=== PATIENT | female | born 1940 | race Caucasian/White ===

== ENCOUNTER 2016-05-05 14:40 | Inpatient (IN) | payer OTHER ==
[~2016-05-05] VITALS: Ht 180.3 cm; Wt 132.7 kg
[~2016-05-05 14:40] MED LIST: ACETAMINOPHEN325 M1 PO; ATORVASTATIN CA10 MG PO; B COMPLETE1 EACH PO; CALCIUM 600 +1 EAC4 PO; COUMADIN2.5 MG PO; COUMADIN4 MG PO; COUMADIN5 MG PO; CYMBALTA60 MG PO; FEMARA2.5 MG PO; FLUCONAZOLE100 MG PO; GABAPENTIN300 MG PO; HUMALOG100 UNIT/1 SC; HUMALOG100 UNIT/2 SC; INVOKANA100 MG PO; IRON325 MG PO; LANTUS 10100 UNITS/ SC; LEVOTHYROXINE200 MC1 PO; MAGNESIUM400 M1 PO; METOPROLOL SUCC50 MG PO; MYCELEX10 MG MM; NOVOLOG PE100 UNITS/ SC; POTASSIUM CHLO20 MEQ PO; SSD25GM TP; TOPROL XL25 MG PO; TRAMADOL HCL50 MG PO; VERAPAMIL HCL240 MG PO; VITAMIN B12 100MCG PO
[2016-05-05 16:08] LABS: EOSINOPHIL (%) 2.2 % (0-5); EOSINOPHIL COUNT 0.2 K/uL (0-0.3); HEMATOCRIT 33.3 % (36.0-46.0); IMMATURE GRANULOCYTE (%) 0.2 % (0.0-0.7); IMMATURE GRANULOCYTE COUNT 0.2 K/uL; LYMPHOCYTE COUNT 1.5 K/uL (1.0-2.8); MCH 28.7 PG (29.0-34.0); MCHC 31.8 G/DL (30.0-36.0); MCV 90.2 FL (83-99); MEAN PLAT.VOLUME 8.9 uM^3 (9.5-12.4); MONOCYTE (%) 6.2 % (3-12); MONOCYTE COUNT 0.5 K/uL (0-0.8); NEUTROPHIL COUNT 6.5 K/uL (1.8-6.4); PLATELET COUNT 229 K/uL (156-360); RBC DIS.WIDTH-CV 14.4 % (11.8-14.6); RBC DIS.WIDTH-SD 46.2 % (39-53); RED BLOOD COUNT 3.69 M/uL (3.80-5.20); WHITE BLOOD COUNT 8.7 K/uL (4.1-10.2)
[2016-05-05 16:17] LABS: CHLORIDE 98 mEq/L (99-109); POTASSIUM 3.3 mEq/L (3.7-5.4); SODIUM 136 mEq/L (136-147)
[2016-05-05 16:19] LABS: GLUCOSE 236 mg/dL (70-99)
[2016-05-05 16:20] LABS: ANION GAP 12 MEQ/L (2-14)
[2016-05-05 16:21] LABS: TOTAL BILIRUBIN 0.3 mg/dL (0.0-1.0)
[2016-05-05 16:22] LABS: ALKALINE PHOSPHATASE 70 IU/L (3-129)
[2016-05-05 16:23] LABS: GFR ESTIMATE (CALCULATED) 42 mL/min/
[2016-05-05 16:24] LABS: UREA NITROGEN (BUN) 28 mg/dL (9-23)
[2016-05-05 16:26] LABS: LIPASE 17 U/L (1.0-51.0)
[2016-05-05 16:53] LABS: ADD MIUA? YES; BILIRUBIN NEGATIVE; BLOOD MODERATE; COLOR YELLOW ((YELLOW)); GLUCOSE (STRIP) NEGATIVE; KETONES NEGATIVE; LEUKOCYTES LARGE; NITRITE POSITIVE; PROTEIN (STRIP) >=300; SPECIFIC GRAVITY 1.023 (1.000-1.030); UROBILINOGEN 0.2 MG/DL (0.2-1.0)
[2016-05-05 17:33] LABS: WHITE BLOOD CELLS TNTC /HPF (0-5)
[2016-05-05 17:34] LABS: INTERNAL CONTROL VALID? YES
[2016-05-05 17:35] LABS: BACTERIA 2+; UCUL ADDED? YES
[2016-05-05 17:36] LABS: CASTS NONE SEEN /LPF; CRYSTALS NONE SEEN
[2016-05-05 17:54] LABS: C DIFF TOXIN POSITIVE (NEGATIVE)
[2016-05-05] MEDS ORDERED: MILK OF MAGN PO (17:59)
[2016-05-05] MEDS ORDERED: FLEET ENEMA-AD118 ML PR (18:00)
[2016-05-05] MEDS ORDERED: DULCOLAX10 MG PR (18:00)
[2016-05-05] MEDS ORDERED: NOVOLOG 10100 UNITS/ SC ×2 (18:02)
[2016-05-05] MEDS ORDERED: COUMADIN4 MG PO (18:03)
[2016-05-05] MEDS ORDERED: TYLENOL650 MG PR (18:04)
[2016-05-05] MEDS ORDERED: PRINIVIL10 MG PO (18:05)
[2016-05-05] MEDS ORDERED: NEURONTIN400 MG PO (18:05)
[2016-05-05] MEDS ORDERED: SYNTHROID25 MCG PO (18:06)
[2016-05-05] MEDS ORDERED: POTASSIUM CHLO20 ME2 PO (18:07)
[2016-05-05 18:08] LABS: PROBE CHECK PASS
[2016-05-05] MEDS ORDERED: TYLENOL REGULA325 MG PO (18:08)
[2016-05-05 23:19] VITALS: BP 136/75
[2016-05-05 23:27] LABS: POINT-OF-CARE METER ID UU13113725
[2016-05-06 05:31] LABS: POINT-OF-CARE METER ID UU13113725
[2016-05-06 07:43] VITALS: BP 152/78
[2016-05-06 08:05] LABS: EOSINOPHIL (%) 3.6 % (0-5); EOSINOPHIL COUNT 0.2 K/uL (0-0.3); HEMATOCRIT 31.8 % (36.0-46.0); LYMPHOCYTE COUNT 1.2 K/uL (1.0-2.8); MCH 28.9 PG (29.0-34.0); MCHC 31.4 G/DL (30.0-36.0); MCV 91.9 FL (83-99); MEAN PLAT.VOLUME 9.9 uM^3 (9.5-12.4); MONOCYTE (%) 8.6 % (3-12); MONOCYTE COUNT 0.5 K/uL (0-0.8); NEUTROPHIL (%) 65.6 % (45-76); NEUTROPHIL COUNT 3.4 K/uL (1.8-6.4); PLATELET COUNT 194 K/uL (156-360); RBC DIS.WIDTH-CV 14.5 % (11.8-14.6); RBC DIS.WIDTH-SD 47.9 % (39-53); RED BLOOD COUNT 3.46 M/uL (3.80-5.20)
[2016-05-06 08:07] LABS: ANION GAP 9 MEQ/L (2-14); CHLORIDE 104 MEQ/L (99-109); GFR ESTIMATE (CALCULATED) 46 mL/min/; GLUCOSE 321 mg/dL (70-99); POTASSIUM 3.6 MEQ/L (3.7-5.4); SAMPLE HEMOLYSIS CHECK 0; SAMPLE ICTERIC CHECK 0; SAMPLE LIPEMIA CHECK 0; SODIUM 139 MEQ/L (136-147); UREA NITROGEN (BUN) 23 mg/dL (9-23); WHITE BLOOD COUNT 5.2 K/uL (4.1-10.2)
[2016-05-06 11:34] LABS: POINT-OF-CARE METER ID UU13113725
[2016-05-06 15:22] VITALS: BP 128/82
[2016-05-06 16:06] LABS: INTER. NORMALIZED RATIO 2.6; PROTHROMBIN TIME 27.5 (9.2-11.2)
[2016-05-06 16:29] LABS: POINT-OF-CARE METER ID UU13113725
[2016-05-06 21:27] LABS: POINT-OF-CARE METER ID UU13113725
[2016-05-06 23:56] VITALS: BP 157/72
[2016-05-07 06:41] LABS: INTER. NORMALIZED RATIO 2.5; PROTHROMBIN TIME 25.7 (9.2-11.2)
[2016-05-07 07:12] VITALS: BP 172/76
[2016-05-07 15:24] VITALS: BP 193/87
[2016-05-07 23:33] VITALS: BP 181/83
[2016-05-08 07:06] LABS: INTER. NORMALIZED RATIO 2.2; PROTHROMBIN TIME 22.6 (9.2-11.2)
[2016-05-08 08:00] VITALS: BP 152/92
[2016-05-08] MEDS ORDERED: ZYVOX600 MG PO (11:54)
[2016-05-08] MEDS ORDERED: VANCOMYCIN HCL125 MG PO (11:54)
[2016-05-08] MEDS ORDERED: NOVOLOG 10100 UNITS/ SC (11:59)
[2016-05-08] MEDS ORDERED: FLORASTOR250 MG PO (11:59)
[2016-05-08] MEDS ORDERED: LANTUS 10100 UNITS/ SC (11:59)
[2016-05-08 12:00] VITALS: BP 145/90
[2016-05-08] MEDS ORDERED: HUMALOG100 UNIT/1 SC (12:20)
[2016-05-08 16:00] VITALS: BP 150/89
[2016-05-08 16:46] LABS: POINT-OF-CARE METER ID UU13113725
== END 2016-05-08 18:09 | disposition home health service (06) | DRG 371 ==
LOC: EME 14:40 → EDOF 19:31 → 5EAST 21:38
PROVIDERS: Emergency Medicine; Hospitalist; Internal Medicine; Physician Assistant Medical
DX: A04.7 Enterocolitis due to Clostridium difficile (principal); L89.323 Pressure ulcer of left buttock, stage 3; L03.313 Cellulitis of chest wall; N17.9 Acute kidney failure, unspecified; D68.2 Hereditary deficiency of other clotting factors; Q60.0 Renal agenesis, unilateral; Z68.41 Body mass index [BMI] 40.0-44.9, adult; L89.312 Pressure ulcer of right buttock, stage 2; L89.152 Pressure ulcer of sacral region, stage 2; R41.82 Altered mental status, unspecified; R26.2 Difficulty in walking, not elsewhere classified; E87.6 Hypokalemia; R82.71 Bacteriuria; E11.65 Type 2 diabetes mellitus with hyperglycemia; I10 Essential (primary) hypertension; E78.5 Hyperlipidemia, unspecified; E03.9 Hypothyroidism, unspecified; F32.9 Major depressive disorder, single episode, unspecified; F41.9 Anxiety disorder, unspecified; N31.9 Neuromuscular dysfunction of bladder, unspecified; M48.00 Spinal stenosis, site unspecified; R32 Unspecified urinary incontinence; E66.01 Morbid (severe) obesity due to excess calories; Z85.3 Personal history of malignant neoplasm of breast; Z85.038 Personal history of other malignant neoplasm of large intestine; Z93.3 Colostomy status; Z74.01 Bed confinement status; Z86.718 Personal history of other venous thrombosis and embolism; Z79.4 Long term (current) use of insulin; Z91.041 Radiographic dye allergy status
CPT/HCPCS: 71010; 80048; 80053; 80202; 81003; 82009; 82565; 82948; 83605; 83630; 83690; 85025; 85610; 87040; 87086; 87493; 87506; 99281; 99285; J0696; J1815; J3370; J3480; J7030; J7050

== ENCOUNTER 2016-07-06 20:37 | Emergency (ER) | payer OTHER ==
[~2016-07-06] VITALS: Ht 180.3 cm; Wt 138.5 kg
[~2016-07-06 20:37] MED LIST changes: +DULCOLAX10 MG PR; +FLEET ENEMA-AD118 ML PR; +FLORASTOR250 MG PO; +MILK OF MAGN PO; +NEURONTIN400 MG PO; +NOVOLOG 10100 UNITS/ SC; +POTASSIUM CHLO20 ME2 PO; +PRINIVIL10 MG PO; +SYNTHROID25 MCG PO; +TYLENOL REGULA325 MG PO; +TYLENOL650 MG PR; +VANCOMYCIN HCL125 MG PO; +ZYVOX600 MG PO
[2016-07-06 22:36] LABS: ADD MIUA? YES; BILIRUBIN NEGATIVE; BLOOD MODERATE; COLOR AMBER ((YELLOW)); GLUCOSE (STRIP) 50; KETONES NEGATIVE; LEUKOCYTES MODERATE; NITRITE POSITIVE; PROTEIN (STRIP) >=500; UROBILINOGEN 0.2 MG/DL (0.2-1.0)
[2016-07-06 23:19] LABS: BACTERIA RARE /HPF; EPITHELIAL CELLS RARE /HPF; MUCUS NONE SEEN /LPF; UCUL ADDED? YES; WHITE BLOOD CELLS TNTC /HPF (0-5)
[2016-07-06] MEDS ORDERED: PERCOCET 5/31 TABLET PO (23:45)
[2016-07-06] MEDS ORDERED: BACTRIM,SEPT1 TABLET PO (23:45)
[2016-07-07 01:49] VITALS: BP 168/102
== END 2016-07-07 01:51 | disposition home or self-care (01) ==
LOC: EME 20:37
PROVIDERS: Emergency Medicine
DX: S82.202A Unspecified fracture of shaft of left tibia, initial encounter for closed fracture (principal); N39.0 Urinary tract infection, site not specified; W22.8XXA Striking against or struck by other objects, initial encounter; G89.29 Other chronic pain; E11.9 Type 2 diabetes mellitus without complications; I10 Essential (primary) hypertension; Z87.442 Personal history of urinary calculi; Z87.440 Personal history of urinary (tract) infections; Z79.4 Long term (current) use of insulin; Z79.01 Long term (current) use of anticoagulants
CPT/HCPCS: 73560; 73590; 81003; 87077; 87086; 87186; 99281; 99284

== ENCOUNTER 2016-09-24 19:00 | Inpatient (IN) | payer OTHER ==
[~2016-09-24] VITALS: Ht 180.3 cm; Wt 160.0 kg
[~2016-09-24 19:00] MED LIST changes: +BACTRIM,SEPT1 TABLET PO; +PERCOCET 5/31 TABLET PO
[2016-09-24 20:16] LABS: HEMATOCRIT 32.3 % (36.0-46.0); MCH 28.2 PG (29.0-34.0); MCHC 31.3 G/DL (30.0-36.0); MCV 90.2 FL (83-99); MEAN PLAT.VOLUME 9.3 uM^3 (9.5-12.4); PLATELET COUNT 282 K/uL (156-360); RBC DIS.WIDTH-CV 15.9 % (11.8-14.6); RBC DIS.WIDTH-SD 52.4 % (39-53); RED BLOOD COUNT 3.58 M/uL (3.80-5.20); WHITE BLOOD COUNT 7.4 K/uL (4.1-10.2)
[2016-09-24 20:28] LABS: CHLORIDE 96 mEq/L (99-109); SODIUM 127 mEq/L (136-147)
[2016-09-24 20:29] LABS: GLUCOSE 201 mg/dL (70-99)
[2016-09-24 20:31] LABS: ANION GAP 15 MEQ/L (2-14)
[2016-09-24 20:33] LABS: GFR ESTIMATE (CALCULATED) 7 mL/min/
[2016-09-24 20:38] LABS: TROP-I INTERPRETATION NEGATIVE; TROPONIN-I < 0.01 ng/mL (0.0-0.30)
[2016-09-24 20:40] LABS: POTASSIUM 6.1 mEq/L (3.7-5.4); UREA NITROGEN (BUN) 101 mg/dL (9-23)
[2016-09-24 21:02] LABS: ADD MIUA? YES; BILIRUBIN SMALL; BLOOD MODERATE; COLOR AMBER ((YELLOW)); GLUCOSE (STRIP) NEGATIVE; KETONES 5; LEUKOCYTES LARGE; NITRITE NEGATIVE; PROTEIN (STRIP) >=500; UROBILINOGEN 0.2 MG/DL (0.2-1.0)
[2016-09-24] MEDS ORDERED: NOVOLOG 10100 UNITS/ SC (21:30)
[2016-09-24] MEDS ORDERED: TOPROL XL25 MG PO (21:32)
[2016-09-24] MEDS ORDERED: PROBIOTIC1 EAC2 PO (21:33)
[2016-09-24 21:36] LABS: BACTERIA 3+ /HPF; EPITHELIAL CELLS 2+ /HPF; MUCUS TRACE /LPF; RED BLOOD CELLS 20-30 /HPF (0-5); UCUL ADDED? YES; WHITE BLOOD CELLS TNTC /HPF (0-5)
[2016-09-24] MEDS ORDERED: CIPRO250 MG PO (21:36)
[2016-09-24] MEDS ORDERED: SILVADENE20 GM TP (21:37)
[2016-09-24 21:38] LABS: CASTS PRESENT /LPF; CRYSTALS NONE SEEN; HYALINE CASTS RARE /LPF
[2016-09-24 21:39] LABS: COARSE GRANULAR CASTS 0-5 /LPF
[2016-09-25 00:03] LABS: CHLORIDE 97 mEq/L (99-109); POTASSIUM 5.7 mEq/L (3.7-5.4); SODIUM 127 mEq/L (136-147)
[2016-09-25 00:05] LABS: GLUCOSE 222 mg/dL (70-99)
[2016-09-25 00:06] LABS: ANION GAP 16 MEQ/L (2-14)
[2016-09-25 00:09] LABS: GFR ESTIMATE (CALCULATED) 7 mL/min/
[2016-09-25 00:10] LABS: UREA NITROGEN (BUN) 99 mg/dL (9-23)
[2016-09-25 00:53] LABS: BASE EXCESS -9.4 mEq/L (-3 to +3); BICARBONATE 17.1 mEq/L (22-26); CARBOXY HGB 2.5 % (0-5); METHEMOGLOBIN 0.6 % (0-1.5); PCO2 39 mm Hg (35-45); PO2 68 mm Hg (80-100)
[2016-09-25 00:54] LABS: COMMENTS - BLOOD GASES C+; FI02 21 %; SITE LR; TOTAL RESP RATE 17 resp/min; pH 7.25 (7.35-7.45)
[2016-09-25 01:54] LABS: INTER. NORMALIZED RATIO 3.3; PROTHROMBIN TIME 34.8 (9.2-11.2)
[2016-09-25 01:57] LABS: URIC ACID 12.1 mg/dL (3.1-9.2)
[2016-09-25 04:33] LABS: CHLORIDE 98 mEq/L (99-109); SODIUM 127 mEq/L (136-147)
[2016-09-25 04:35] LABS: GLUCOSE 215 mg/dL (70-99)
[2016-09-25 04:36] LABS: ANION GAP 12 MEQ/L (2-14)
[2016-09-25 04:38] LABS: GFR ESTIMATE (CALCULATED) 7 mL/min/
[2016-09-25 04:39] LABS: UREA NITROGEN (BUN) 94 mg/dL (9-23)
[2016-09-25 07:32] LABS: POINT-OF-CARE METER ID UU13113702
[2016-09-25 08:05] LABS: UR CREATININE CONCENTRATION 74.5 MG/DL
[2016-09-25 11:47] LABS: POINT-OF-CARE METER ID UU13113702
[2016-09-25 13:25] LABS: CHLORIDE 97 mEq/L (99-109); POTASSIUM 5.1 mEq/L (3.7-5.4); SODIUM 131 mEq/L (136-147)
[2016-09-25 13:27] LABS: GLUCOSE 148 mg/dL (70-99)
[2016-09-25 13:28] LABS: ANION GAP 13 MEQ/L (2-14)
[2016-09-25 13:31] LABS: GFR ESTIMATE (CALCULATED) 7 mL/min/
[2016-09-25 13:32] LABS: UREA NITROGEN (BUN) 97 mg/dL (9-23)
[2016-09-25 16:14] LABS: POINT-OF-CARE METER ID UU13113702
[2016-09-25 20:46] LABS: CHLORIDE 97 mEq/L (99-109); POTASSIUM 4.6 mEq/L (3.7-5.4); SODIUM 131 mEq/L (136-147)
[2016-09-25 20:49] LABS: ANION GAP 13 MEQ/L (2-14)
[2016-09-25 20:52] LABS: GFR ESTIMATE (CALCULATED) 7 mL/min/; GLUCOSE 102 mg/dL (70-99)
[2016-09-25 20:53] LABS: UREA NITROGEN (BUN) 94 mg/dL (9-23)
[2016-09-25 21:00] VITALS: BP 127/79
[2016-09-25 23:30] VITALS: BP 114/58
[2016-09-26 03:45] VITALS: BP 103/53
[2016-09-26 04:42] LABS: HEMATOCRIT 30.1 % (36.0-46.0); MCH 27.7 PG (29.0-34.0); MCHC 31.2 G/DL (30.0-36.0); MCV 88.8 FL (83-99); MEAN PLAT.VOLUME 9.4 uM^3 (9.5-12.4); PLATELET COUNT 221 K/uL (156-360); RBC DIS.WIDTH-CV 15.7 % (11.8-14.6); RBC DIS.WIDTH-SD 51.5 % (39-53); RED BLOOD COUNT 3.39 M/uL (3.80-5.20)
[2016-09-26 04:58] LABS: CHLORIDE 100 mEq/L (99-109); POTASSIUM 4.3 mEq/L (3.7-5.4); SODIUM 132 mEq/L (136-147)
[2016-09-26 05:00] LABS: GLUCOSE 88 mg/dL (70-99)
[2016-09-26 05:01] LABS: ANION GAP 12 MEQ/L (2-14)
[2016-09-26 05:03] LABS: GFR ESTIMATE (CALCULATED) 8 mL/min/
[2016-09-26 05:04] LABS: UREA NITROGEN (BUN) 98 mg/dL (9-23)
[2016-09-26 07:21] VITALS: BP 105/57
[2016-09-26 11:22] VITALS: BP 129/59
[2016-09-26 11:41] LABS: POINT-OF-CARE USER ID NUTSLF44
[2016-09-26 12:13] LABS: INTER. NORMALIZED RATIO 3.9; PROTHROMBIN TIME 41.8 (9.2-11.2)
[2016-09-26 15:53] VITALS: BP 131/65
[2016-09-26 16:31] LABS: POINT-OF-CARE USER ID NUTSLF44
[2016-09-26 19:00] VITALS: BP 147/66
[2016-09-26 23:25] VITALS: BP 144/56
[2016-09-27 03:30] VITALS: BP 129/59
[2016-09-27 06:39] LABS: ANION GAP 12 MEQ/L (2-14); CHLORIDE 105 MEQ/L (99-109); GFR ESTIMATE (CALCULATED) 9 mL/min/; GLUCOSE 125 mg/dL (70-99); SAMPLE HEMOLYSIS CHECK 0; SAMPLE ICTERIC CHECK 0; SAMPLE LIPEMIA CHECK 0; SODIUM 134 MEQ/L (136-147); UREA NITROGEN (BUN) 85 mg/dL (9-23)
[2016-09-27 06:44] LABS: INTER. NORMALIZED RATIO 3.4; PROTHROMBIN TIME 35.9 (9.2-11.2)
[2016-09-27 07:37] VITALS: BP 134/60
[2016-09-27 12:39] VITALS: BP 101/62
[2016-09-27 15:37] VITALS: BP 124/85
[2016-09-27 20:30] VITALS: BP 141/64
[2016-09-27 22:32] VITALS: BP 142/64
[2016-09-28 07:21] VITALS: BP 150/67
[2016-09-28 07:33] LABS: INTER. NORMALIZED RATIO 2.2
[2016-09-28 07:36] LABS: PROTHROMBIN TIME 22.5 (9.2-11.2)
[2016-09-28 07:37] LABS: POINT-OF-CARE METER ID UU13113725
[2016-09-28 08:05] LABS: ANION GAP 9 MEQ/L (2-14); CHLORIDE 110 MEQ/L (99-109); GFR ESTIMATE (CALCULATED) 13 mL/min/; GLUCOSE 149 mg/dL (70-99); POTASSIUM 3.8 MEQ/L (3.7-5.4); SAMPLE HEMOLYSIS CHECK 0; SAMPLE ICTERIC CHECK 0; SAMPLE LIPEMIA CHECK 0; SODIUM 138 MEQ/L (136-147); UREA NITROGEN (BUN) 71 mg/dL (9-23)
[2016-09-28 11:15] LABS: POINT-OF-CARE METER ID UU13113725
[2016-09-28 15:02] VITALS: BP 178/75
[2016-09-28 21:58] LABS: POINT-OF-CARE METER ID UU13113725
[2016-09-29 00:47] VITALS: BP 155/68
[2016-09-29 08:29] LABS: INTER. NORMALIZED RATIO 1.5; PROTHROMBIN TIME 15.7 (9.2-11.2)
[2016-09-29 08:51] LABS: ANION GAP 8 MEQ/L (2-14); CHLORIDE 113 MEQ/L (99-109); GFR ESTIMATE (CALCULATED) 20 mL/min/; GLUCOSE 118 mg/dL (70-99); POTASSIUM 3.7 MEQ/L (3.7-5.4); SAMPLE HEMOLYSIS CHECK 0; SAMPLE ICTERIC CHECK 0; SAMPLE LIPEMIA CHECK 0; SODIUM 142 MEQ/L (136-147); UREA NITROGEN (BUN) 51 mg/dL (9-23)
[2016-09-29 09:16] VITALS: BP 147/80
[2016-09-29 09:24] LABS: HEMATOCRIT 28.6 % (36.0-46.0); MCH 27.9 PG (29.0-34.0); MCHC 30.8 G/DL (30.0-36.0); MCV 90.8 FL (83-99); MEAN PLAT.VOLUME 9.3 uM^3 (9.5-12.4); PLATELET COUNT 201 K/uL (156-360); RBC DIS.WIDTH-CV 15.3 % (11.8-14.6); RBC DIS.WIDTH-SD 50.8 % (39-53); RED BLOOD COUNT 3.15 M/uL (3.80-5.20); WHITE BLOOD COUNT 5.1 K/uL (4.1-10.2)
[2016-09-29 11:22] LABS: POINT-OF-CARE METER ID UU13113725
[2016-09-29 16:12] VITALS: BP 187/86
[2016-09-29 19:30] VITALS: BP 195/89
[2016-09-29 23:51] VITALS: BP 190/88
[2016-09-30 07:10] VITALS: BP 166/76
[2016-09-30 11:01] LABS: HEMATOCRIT 28.3 % (36.0-46.0); MCH 28.2 PG (29.0-34.0); MCHC 31.4 G/DL (30.0-36.0); MCV 89.6 FL (83-99); MEAN PLAT.VOLUME 8.8 uM^3 (9.5-12.4); PLATELET COUNT 195 K/uL (156-360); RBC DIS.WIDTH-CV 15.2 % (11.8-14.6); RED BLOOD COUNT 3.16 M/uL (3.80-5.20); WHITE BLOOD COUNT 4.7 K/uL (4.1-10.2)
[2016-09-30 11:17] LABS: INTER. NORMALIZED RATIO 1.4; PROTHROMBIN TIME 14.1 (9.2-11.2)
[2016-09-30 11:39] LABS: ANION GAP 9 MEQ/L (2-14); CHLORIDE 112 MEQ/L (99-109); GFR ESTIMATE (CALCULATED) 33 mL/min/; GLUCOSE 153 mg/dL (70-99); POTASSIUM 3.5 MEQ/L (3.7-5.4); SAMPLE HEMOLYSIS CHECK 0; SAMPLE ICTERIC CHECK 0; SAMPLE LIPEMIA CHECK 0; SODIUM 140 MEQ/L (136-147); UREA NITROGEN (BUN) 32 mg/dL (9-23)
[2016-09-30 11:46] LABS: POINT-OF-CARE METER ID UU13113725
[2016-09-30 12:07] LABS: PTT 44.9 (25-32)
[2016-09-30 15:06] VITALS: BP 140/91
[2016-09-30 20:04] LABS: INTER. NORMALIZED RATIO 1.4; PTT 57.8 (25-32)
[2016-09-30 22:03] LABS: POINT-OF-CARE METER ID UU13113725
[2016-10-01 00:20] VITALS: BP 187/82
[2016-10-01 06:38] LABS: INTER. NORMALIZED RATIO 1.3; PROTHROMBIN TIME 13.5 (9.2-11.2)
[2016-10-01 06:40] LABS: EOSINOPHIL (%) 6.6 % (0-5); EOSINOPHIL COUNT 0.3 K/uL (0-0.3); HEMATOCRIT 26.6 % (36.0-46.0); IMMATURE GRANULOCYTE (%) 0.2 % (0.0-0.7); INSTRUMENT ABS NEUTROPHIL CT 2.2 K/uL; LYMPHOCYTE COUNT 1.4 K/uL (1.0-2.8); MCHC 32.7 G/DL (30.0-36.0); MCV 88.7 FL (83-99); MEAN PLAT.VOLUME 8.8 uM^3 (9.5-12.4); MONOCYTE (%) 8.9 % (3-12); MONOCYTE COUNT 0.4 K/uL (0-0.8); NEUTROPHIL (%) 50.8 % (45-76); NEUTROPHIL COUNT 2.2 K/uL (1.8-6.4); PLATELET COUNT 202 K/uL (156-360); RBC DIS.WIDTH-CV 15.4 % (11.8-14.6); RBC DIS.WIDTH-SD 49.1 % (39-53); WHITE BLOOD COUNT 4.3 K/uL (4.1-10.2)
[2016-10-01 07:45] LABS: ANION GAP 9 MEQ/L (2-14); CHLORIDE 115 MEQ/L (99-109); GFR ESTIMATE (CALCULATED) 42 mL/min/; POTASSIUM 3.6 MEQ/L (3.7-5.4); SAMPLE HEMOLYSIS CHECK 0; SAMPLE ICTERIC CHECK 0; SAMPLE LIPEMIA CHECK 0; SODIUM 144 MEQ/L (136-147); UREA NITROGEN (BUN) 27 mg/dL (9-23)
[2016-10-01 07:46] LABS: GLUCOSE 86 mg/dL (70-99)
[2016-10-01 08:05] VITALS: BP 143/101
[2016-10-01 09:08] LABS: POINT-OF-CARE METER ID UU13113725
[2016-10-01 11:05] LABS: POINT-OF-CARE METER ID UU13113725
[2016-10-01 13:29] LABS: INTER. NORMALIZED RATIO 1.3; PROTHROMBIN TIME 13.8 (9.2-11.2); PTT 51.5 (25-32)
[2016-10-01] MEDS ORDERED: LOVENOX150 MG/1 M SC (14:31)
[2016-10-01] MEDS ORDERED: MONISTAT 31 EACH VG (14:31)
[2016-10-01] MEDS ORDERED: COUMADIN4 MG PO (14:39)
[2016-10-01 15:55] VITALS: BP 134/101
== END 2016-10-01 17:33 | disposition home health service (06) | DRG 871 ==
LOC: EME → EDBD 19:00 → EME 19:00 → EDOF 09-25 00:14 → 4EAST 09-25 00:14 → 5EAST 09-27 22:22
PROVIDERS: Emergency Medicine; Hospitalist; Internal Medicine; Physician Assistant
DX: A41.9 Sepsis, unspecified organism (principal); N17.0 Acute kidney failure with tubular necrosis; R65.20 Severe sepsis without septic shock; L89.320 Pressure ulcer of left buttock, unstageable; N39.0 Urinary tract infection, site not specified; L89.310 Pressure ulcer of right buttock, unstageable; E66.01 Morbid (severe) obesity due to excess calories; E11.622 Type 2 diabetes mellitus with other skin ulcer; E11.22 Type 2 diabetes mellitus with diabetic chronic kidney disease; E87.5 Hyperkalemia; I12.9 Hypertensive chronic kidney disease with stage 1 through stage 4 chronic kidney disease, or unspecified chronic kidney disease; F41.9 Anxiety disorder, unspecified; N18.3 Chronic kidney disease, stage 3 (moderate); E87.6 Hypokalemia; F32.9 Major depressive disorder, single episode, unspecified; D68.59 Other primary thrombophilia; M48.00 Spinal stenosis, site unspecified; M85.80 Other specified disorders of bone density and structure, unspecified site; D64.9 Anemia, unspecified; L97.329 Non-pressure chronic ulcer of left ankle with unspecified severity; D68.51 Activated protein C resistance; E78.5 Hyperlipidemia, unspecified; B96.5 Pseudomonas (aeruginosa) (mallei) (pseudomallei) as the cause of diseases classified elsewhere; Z87.440 Personal history of urinary (tract) infections; Z68.42 Body mass index [BMI] 45.0-49.9, adult; Z86.718 Personal history of other venous thrombosis and embolism; Z74.01 Bed confinement status; Z99.3 Dependence on wheelchair; Z93.3 Colostomy status; Z90.49 Acquired absence of other specified parts of digestive tract; Z85.038 Personal history of other malignant neoplasm of large intestine; Z79.01 Long term (current) use of anticoagulants; N13.5 Crossing vessel and stricture of ureter without hydronephrosis; E87.2 Acidosis
CPT/HCPCS: 36600; 73590; 74176; 80048; 80048 91; 80069; 81003; 82436; 82533 91; 82550; 82570; 82803; 82948; 83605; 83930; 83935; 84133; 84156; 84300; 84484; 84550; 85025; 85027; 85610; 85730; 87040; 87086 GA; 89190; 93005; 93306; 94640; A6212; J0360; J0610; J1335; J1650; J1815; J2405; J2543; J7030; J7050; J7070

== ENCOUNTER 2017-01-27 12:00 | Inpatient (IN) | payer OTHER ==
[~2017-01-27] VITALS: Ht 160 cm; Wt 141.6 kg
[~2017-01-27 12:00] MED LIST changes: +CIPRO250 MG PO; +LOVENOX150 MG/1 M SC; +MONISTAT 31 EACH VG; +PROBIOTIC1 EAC2 PO; +SILVADENE20 GM TP
[2017-01-27 12:32] LABS: EOSINOPHIL (%) 1.7 % (0-5); EOSINOPHIL COUNT 0.3 K/uL (0-0.3); IMMATURE GRANULOCYTE (%) 0.8 % (0.0-0.7); IMMATURE GRANULOCYTE COUNT 0.1 K/uL; INSTRUMENT ABS NEUTROPHIL CT 13.2 K/uL; LYMPHOCYTE COUNT 1.2 K/uL (1.0-2.8); MCH 27.6 PG (29.0-34.0); MCHC 31.3 G/DL (30.0-36.0); MCV 88.3 FL (83-99); MEAN PLAT.VOLUME 9.5 uM^3 (9.5-12.4); MONOCYTE (%) 5.9 % (3-12); MONOCYTE COUNT 0.9 K/uL (0-0.8); NEUTROPHIL (%) 83.8 % (45-76); NEUTROPHIL COUNT 13.2 K/uL (1.8-6.4); PLATELET COUNT 261 K/uL (156-360); RBC DIS.WIDTH-CV 13.9 % (11.8-14.6); RBC DIS.WIDTH-SD 45.1 % (39-53); RED BLOOD COUNT 3.51 M/uL (3.80-5.20); WHITE BLOOD COUNT 15.7 K/uL (4.1-10.2)
[2017-01-27 12:42] LABS: CHLORIDE 93 mEq/L (99-109); POTASSIUM 3.4 mEq/L (3.7-5.4); SODIUM 131 mEq/L (136-147)
[2017-01-27 12:44] LABS: GLUCOSE 179 mg/dL (70-99)
[2017-01-27 12:45] LABS: ANION GAP 12 MEQ/L (2-14)
[2017-01-27 12:48] LABS: GFR ESTIMATE (CALCULATED) 18 mL/min/
[2017-01-27 12:49] LABS: UREA NITROGEN (BUN) 38 mg/dL (9-23)
[2017-01-27 15:51] LABS: ADD MIUA? YES; BILIRUBIN NEGATIVE; BLOOD LARGE; COLOR AMBER ((YELLOW)); GLUCOSE (STRIP) NEGATIVE; KETONES NEGATIVE; LEUKOCYTES LARGE; NITRITE NEGATIVE; PROTEIN (STRIP) 100; SPECIFIC GRAVITY 1.019 (1.000-1.030); UROBILINOGEN 0.2 MG/DL (0.2-1.0)
[2017-01-27 16:28] LABS: BACTERIA 4+ /HPF; EPITHELIAL CELLS 1+ /HPF; MUCUS NONE SEEN /LPF; RED BLOOD CELLS TNTC /HPF (0-5); UCUL ADDED? YES; WHITE BLOOD CELLS TNTC /HPF (0-5)
[2017-01-27 17:37] LABS: PROTHROMBIN TIME 34.4 SEC (10.2-12.9)
[2017-01-27] MEDS ORDERED: VALSARTAN-HCTZ1 EAC1 PO (18:55)
[2017-01-27] MEDS ORDERED: COUMADIN4 MG PO (18:56)
[2017-01-27] MEDS ORDERED: ATORVASTATIN CA20 MG PO (18:59)
[2017-01-27] MEDS ORDERED: HUMALOG100 UNIT/1 SC (19:01)
[2017-01-27] MEDS ORDERED: LETROZOLE2.5 MG PO (19:02)
[2017-01-27] MEDS ORDERED: METOPROLOL SUCC25 MG PO (19:02)
[2017-01-27] MEDS ORDERED: PROAIR HFA8.5 GM IH (19:03)
[2017-01-27] MEDS ORDERED: COUMADIN2.5 MG PO (19:20)
[2017-01-27 20:48] VITALS: BP 142/58
[2017-01-28] VITALS (7 sets, daily range): BP systolic 18–181; BP diastolic 57–82
[2017-01-28 06:27] LABS: HEMATOCRIT 28.4 % (36.0-46.0); MCH 27.5 PG (29.0-34.0); MCV 88.8 FL (83-99); MEAN PLAT.VOLUME 9.5 uM^3 (9.5-12.4); PLATELET COUNT 273 K/uL (156-360); RBC DIS.WIDTH-CV 13.9 % (11.8-14.6); RBC DIS.WIDTH-SD 45.5 % (39-53); WHITE BLOOD COUNT 9.1 K/uL (4.1-10.2)
[2017-01-28 06:55] LABS: POINT-OF-CARE METER ID UU13113725
[2017-01-28 06:58] LABS: ANION GAP 10 MEQ/L (2-14); CHLORIDE 97 MEQ/L (99-109); GFR ESTIMATE (CALCULATED) 24 mL/min/; GLUCOSE 219 mg/dL (70-99); SAMPLE HEMOLYSIS CHECK 0; SAMPLE ICTERIC CHECK 0; SAMPLE LIPEMIA CHECK 0; SODIUM 132 MEQ/L (136-147); UREA NITROGEN (BUN) 38 mg/dL (9-23); VANCOMYCIN, TROUGH 15.5 MCG/ML (10-20)
[2017-01-28 11:01] LABS: INTER. NORMALIZED RATIO 3.5
[2017-01-28 12:18] LABS: POINT-OF-CARE METER ID UU13113725
[2017-01-28 15:15] LABS: POINT-OF-CARE METER ID UU13113725
[2017-01-28 21:36] LABS: POINT-OF-CARE METER ID UU13113725
[2017-01-29 05:56] LABS: EOSINOPHIL (%) 3.8 % (0-5); EOSINOPHIL COUNT 0.2 K/uL (0-0.3); HEMATOCRIT 29.4 % (36.0-46.0); IMMATURE GRANULOCYTE (%) 0.8 % (0.0-0.7); INSTRUMENT ABS NEUTROPHIL CT 3.8 K/uL; LYMPHOCYTE COUNT 0.9 K/uL (1.0-2.8); MCH 28.2 PG (29.0-34.0); MCHC 31.3 G/DL (30.0-36.0); MCV 90.2 FL (83-99); MEAN PLAT.VOLUME 9.2 uM^3 (9.5-12.4); MONOCYTE (%) 7.9 % (3-12); MONOCYTE COUNT 0.4 K/uL (0-0.8); NEUTROPHIL (%) 70.9 % (45-76); NEUTROPHIL COUNT 3.8 K/uL (1.8-6.4); PLATELET COUNT 279 K/uL (156-360); RBC DIS.WIDTH-CV 13.8 % (11.8-14.6); RBC DIS.WIDTH-SD 45.1 % (39-53); RED BLOOD COUNT 3.26 M/uL (3.80-5.20); WHITE BLOOD COUNT 5.3 K/uL (4.1-10.2)
[2017-01-29 06:16] LABS: INTER. NORMALIZED RATIO 3.3; PROTHROMBIN TIME 37.6 SEC (10.2-12.9)
[2017-01-29 06:20] LABS: ANION GAP 10 MEQ/L (2-14); CHLORIDE 102 MEQ/L (99-109); GFR ESTIMATE (CALCULATED) 31 mL/min/; GLUCOSE 208 mg/dL (70-99); POTASSIUM 4.1 MEQ/L (3.7-5.4); SAMPLE HEMOLYSIS CHECK 0; SAMPLE ICTERIC CHECK 0; SAMPLE LIPEMIA CHECK 0; SODIUM 138 MEQ/L (136-147); UREA NITROGEN (BUN) 29 mg/dL (9-23)
[2017-01-29 06:36] LABS: POINT-OF-CARE METER ID UU13113774
[2017-01-29 07:44] VITALS: BP 163/78
[2017-01-29 11:40] LABS: POINT-OF-CARE METER ID UU13113774
[2017-01-29 11:50] VITALS: BP 168/76
[2017-01-29 15:47] LABS: POINT-OF-CARE METER ID UU13113725
[2017-01-29 15:53] VITALS: BP 168/84
[2017-01-29 20:00] VITALS: BP 168/92
[2017-01-29 21:07] LABS: POINT-OF-CARE METER ID UU13113725
[2017-01-30 00:47] VITALS: BP 142/82
[2017-01-30 06:15] LABS: POINT-OF-CARE METER ID UU13113725
[2017-01-30 07:10] LABS: PROTHROMBIN TIME 34.7 SEC (10.2-12.9)
[2017-01-30 07:28] LABS: ANION GAP 8 MEQ/L (2-14); CHLORIDE 103 MEQ/L (99-109); GFR ESTIMATE (CALCULATED) 39 mL/min/; GLUCOSE 202 mg/dL (70-99); POTASSIUM 4.1 MEQ/L (3.7-5.4); SAMPLE HEMOLYSIS CHECK 0; SAMPLE ICTERIC CHECK 0; SAMPLE LIPEMIA CHECK 0; SODIUM 138 MEQ/L (136-147); UREA NITROGEN (BUN) 22 mg/dL (9-23)
[2017-01-30 08:00] VITALS: BP 118/64
[2017-01-30 11:07] LABS: POINT-OF-CARE METER ID UU13113774
[2017-01-30 15:31] VITALS: BP 110/88
[2017-01-30 15:32] LABS: POINT-OF-CARE METER ID UU13113774
[2017-01-30 20:15] VITALS: BP 130/74
[2017-01-30 21:40] LABS: POINT-OF-CARE METER ID UU13113774
[2017-01-31 00:30] VITALS: BP 128/70
[2017-01-31 04:15] VITALS: BP 130/65
[2017-01-31 05:58] LABS: POINT-OF-CARE METER ID UU13113725
[2017-01-31 06:36] LABS: INTER. NORMALIZED RATIO 2.5; PROTHROMBIN TIME 28.8 SEC (10.2-12.9)
[2017-01-31 07:32] VITALS: BP 168/77
[2017-01-31 11:58] LABS: POINT-OF-CARE METER ID UU13113725
[2017-01-31] MEDS ORDERED: DOXYCYCLINE HY100 M3 PO (12:56)
[2017-01-31] MEDS ORDERED: CEPHALEXIN500 MG PO (12:56)
[2017-01-31 15:45] LABS: POINT-OF-CARE METER ID UU13113725
== END 2017-01-31 16:43 | disposition home or self-care (01) | DRG 682 ==
LOC: EME 12:00 → 5EAST 16:08 → EDOF 16:08 → ENRESERV 16:52 → 5EAST 20:10
PROVIDERS: Internal Medicine; Student in an Organized Health Care Education/Training Program
DX: N17.9 Acute kidney failure, unspecified (principal); N61.0 Mastitis without abscess; N39.0 Urinary tract infection, site not specified; E87.6 Hypokalemia; Z68.43 Body mass index [BMI] 50.0-59.9, adult; L89.152 Pressure ulcer of sacral region, stage 2; L89.153 Pressure ulcer of sacral region, stage 3; E86.1 Hypovolemia; E11.22 Type 2 diabetes mellitus with diabetic chronic kidney disease; N18.3 Chronic kidney disease, stage 3 (moderate); E87.1 Hypo-osmolality and hyponatremia; E78.5 Hyperlipidemia, unspecified; J45.909 Unspecified asthma, uncomplicated; E66.9 Obesity, unspecified; D64.9 Anemia, unspecified; R33.9 Retention of urine, unspecified; E03.9 Hypothyroidism, unspecified; R26.9 Unspecified abnormalities of gait and mobility; I12.9 Hypertensive chronic kidney disease with stage 1 through stage 4 chronic kidney disease, or unspecified chronic kidney disease; R31.9 Hematuria, unspecified; Z96.0 Presence of urogenital implants; Z93.3 Colostomy status; Z90.49 Acquired absence of other specified parts of digestive tract; Z87.440 Personal history of urinary (tract) infections; Z85.038 Personal history of other malignant neoplasm of large intestine; Z86.718 Personal history of other venous thrombosis and embolism; Z79.01 Long term (current) use of anticoagulants; Z82.3 Family history of stroke; Z74.01 Bed confinement status
CPT/HCPCS: 71010; 76641; 80048; 80202; 81003; 82948; 83605; 85025; 85027; 85610; 87040; 87086; 99281; 99285; J0690; J0692; J1335; J1815; J3370; J7030; J7050

== ENCOUNTER 2017-02-24 15:02 | Inpatient (IN) | payer OTHER ==
[~2017-02-24] VITALS: Ht 180.3 cm; Wt 143.3 kg
[~2017-02-24 15:02] MED LIST changes: +ATORVASTATIN CA20 MG PO; +CEPHALEXIN500 MG PO; +DOXYCYCLINE HY100 M3 PO; +LETROZOLE2.5 MG PO; +METOPROLOL SUCC25 MG PO; +PROAIR HFA8.5 GM IH; +VALSARTAN-HCTZ1 EAC1 PO
[2017-02-24 15:45] LABS: EOSINOPHIL (%) 1.8 % (0-5); EOSINOPHIL COUNT 0.2 K/uL (0-0.3); IMMATURE GRANULOCYTE (%) 0.2 % (0.0-0.7); INSTRUMENT ABS NEUTROPHIL CT 6.7 K/uL; LYMPHOCYTE COUNT 0.9 K/uL (1.0-2.8); MCH 27.6 PG (29.0-34.0); MCHC 30.3 G/DL (30.0-36.0); MCV 91.1 FL (83-99); MEAN PLAT.VOLUME 9.4 uM^3 (9.5-12.4); MONOCYTE (%) 8.3 % (3-12); MONOCYTE COUNT 0.7 K/uL (0-0.8); NEUTROPHIL (%) 79.3 % (45-76); NEUTROPHIL COUNT 6.7 K/uL (1.8-6.4); PLATELET COUNT 252 K/uL (156-360); RBC DIS.WIDTH-CV 15.2 % (11.8-14.6); RBC DIS.WIDTH-SD 50.8 % (39-53); RED BLOOD COUNT 3.84 M/uL (3.80-5.20); WHITE BLOOD COUNT 8.5 K/uL (4.1-10.2)
[2017-02-24 15:53] LABS: CHLORIDE 99 mEq/L (99-109); POTASSIUM 4.2 mEq/L (3.7-5.4); SODIUM 135 mEq/L (136-147)
[2017-02-24 15:55] LABS: GLUCOSE 187 mg/dL (70-99)
[2017-02-24 15:56] LABS: ANION GAP 11 MEQ/L (2-14)
[2017-02-24 15:59] LABS: GFR ESTIMATE (CALCULATED) 27 mL/min/
[2017-02-24 16:00] LABS: UREA NITROGEN (BUN) 31 mg/dL (9-23)
[2017-02-24 18:00] LABS: ADD MIUA? YES; BILIRUBIN NEGATIVE; BLOOD SMALL; COLOR AMBER ((YELLOW)); GLUCOSE (STRIP) NEGATIVE; KETONES NEGATIVE; LEUKOCYTES MODERATE; NITRITE POSITIVE; PROTEIN (STRIP) >=500; SPECIFIC GRAVITY 1.016 (1.000-1.030); UROBILINOGEN 0.2 MG/DL (0.2-1.0)
[2017-02-24 18:15] LABS: BACTERIA 3+ /HPF; EPITHELIAL CELLS 1+ /HPF; MUCUS NONE SEEN /LPF; UCUL ADDED? YES; WHITE BLOOD CELLS TNTC /HPF (0-5)
[2017-02-24] MEDS ORDERED: CALMOSEPTINE O120 GM TP (20:16)
[2017-02-24] MEDS ORDERED: DIOVAN HCT 11 TABLET PO (20:16)
[2017-02-24 23:30] LABS: POINT-OF-CARE METER ID UU13113725
[2017-02-25 00:09] VITALS: BP 153/67
[2017-02-25 06:10] LABS: HEMATOCRIT 30.8 % (36.0-46.0); MCHC 30.2 G/DL (30.0-36.0); MCV 92.8 FL (83-99); MEAN PLAT.VOLUME 9.1 uM^3 (9.5-12.4); PLATELET COUNT 201 K/uL (156-360); RBC DIS.WIDTH-SD 50.7 % (39-53); RED BLOOD COUNT 3.32 M/uL (3.80-5.20); WHITE BLOOD COUNT 5.8 K/uL (4.1-10.2)
[2017-02-25 06:31] LABS: POINT-OF-CARE METER ID UU13113725
[2017-02-25 06:35] LABS: ANION GAP 9 MEQ/L (2-14); CHLORIDE 104 MEQ/L (99-109); GFR ESTIMATE (CALCULATED) 33 mL/min/; GLUCOSE 166 mg/dL (70-99); POTASSIUM 3.7 MEQ/L (3.7-5.4); SAMPLE HEMOLYSIS CHECK 0; SAMPLE ICTERIC CHECK 0; SAMPLE LIPEMIA CHECK 0; SODIUM 139 MEQ/L (136-147); UREA NITROGEN (BUN) 31 mg/dL (9-23)
[2017-02-25 07:30] VITALS: BP 146/65
[2017-02-25 10:24] VITALS: BP 134/60; BP 144/67
[2017-02-25 11:10] LABS: INTER. NORMALIZED RATIO 3.2; PROTHROMBIN TIME 36.5 SEC (10.2-12.9)
[2017-02-25 11:27] LABS: POINT-OF-CARE METER ID UU13113725
[2017-02-25 16:00] VITALS: BP 110/55
[2017-02-25 17:02] LABS: POINT-OF-CARE METER ID UU13113774
[2017-02-25 20:59] LABS: POINT-OF-CARE METER ID UU13113774
[2017-02-25 23:18] VITALS: BP 112/55
[2017-02-26 05:59] LABS: HEMATOCRIT 29.4 % (36.0-46.0); MCH 27.7 PG (29.0-34.0); MCHC 30.3 G/DL (30.0-36.0); MCV 91.6 FL (83-99); MEAN PLAT.VOLUME 9.8 uM^3 (9.5-12.4); PLATELET COUNT 217 K/uL (156-360); RBC DIS.WIDTH-CV 15.1 % (11.8-14.6); RBC DIS.WIDTH-SD 50.7 % (39-53); RED BLOOD COUNT 3.21 M/uL (3.80-5.20); WHITE BLOOD COUNT 5.5 K/uL (4.1-10.2)
[2017-02-26 06:04] LABS: INTER. NORMALIZED RATIO 3.1; PROTHROMBIN TIME 35.1 SEC (10.2-12.9)
[2017-02-26 06:09] LABS: POINT-OF-CARE METER ID UU13113774
[2017-02-26 06:27] LABS: ANION GAP 8 MEQ/L (2-14); CHLORIDE 103 MEQ/L (99-109); GFR ESTIMATE (CALCULATED) 27 mL/min/; GLUCOSE 147 mg/dL (70-99); POTASSIUM 3.9 MEQ/L (3.7-5.4); SAMPLE HEMOLYSIS CHECK 0; SAMPLE ICTERIC CHECK 0; SAMPLE LIPEMIA CHECK 0; SODIUM 138 MEQ/L (136-147); UREA NITROGEN (BUN) 31 mg/dL (9-23)
[2017-02-26 07:37] VITALS: BP 116/70
[2017-02-26 10:59] LABS: POINT-OF-CARE METER ID UU13113774
[2017-02-26 15:29] LABS: POINT-OF-CARE METER ID UU13113725
[2017-02-26 16:33] VITALS: BP 120/70
[2017-02-26 21:19] LABS: POINT-OF-CARE METER ID UU13113725
[2017-02-26 23:41] VITALS: BP 130/74
[2017-02-27 05:19] LABS: POINT-OF-CARE METER ID UU13113774
[2017-02-27 05:38] LABS: INTER. NORMALIZED RATIO 2.8; PROTHROMBIN TIME 31.9 SEC (10.2-12.9)
[2017-02-27 07:10] VITALS: BP 149/70
[2017-02-27] MEDS ORDERED: AMOXICILLIN500 MG PO (09:07)
[2017-02-27 11:12] LABS: POINT-OF-CARE METER ID UU13113774
== END 2017-02-27 12:12 | disposition home health service (06) | DRG 699 ==
LOC: EME 15:02 → EDOF 20:58 → 5EAST 20:58 → ENRESERV 21:00 → 5EAST 21:57 → ENPENDDIS 02-27 → 5EAST 02-27 12:12
PROVIDERS: Emergency Medicine; Family Medicine; Hospitalist
DX: T83.518A Infection and inflammatory reaction due to other urinary catheter, initial encounter (principal); N39.0 Urinary tract infection, site not specified; B96.4 Proteus (mirabilis) (morganii) as the cause of diseases classified elsewhere; T83.091A Other mechanical complication of indwelling urethral catheter, initial encounter; Y84.6 Urinary catheterization as the cause of abnormal reaction of the patient, or of later complication, without mention of misadventure at the time of the procedure; N31.9 Neuromuscular dysfunction of bladder, unspecified; I12.9 Hypertensive chronic kidney disease with stage 1 through stage 4 chronic kidney disease, or unspecified chronic kidney disease; E11.22 Type 2 diabetes mellitus with diabetic chronic kidney disease; N18.3 Chronic kidney disease, stage 3 (moderate); D63.1 Anemia in chronic kidney disease; R21 Rash and other nonspecific skin eruption; B36.9 Superficial mycosis, unspecified; E78.5 Hyperlipidemia, unspecified; J45.909 Unspecified asthma, uncomplicated; L89.300 Pressure ulcer of unspecified buttock, unstageable; L89.610 Pressure ulcer of right heel, unstageable; M48.061 Spinal stenosis, lumbar region without neurogenic claudication; D68.2 Hereditary deficiency of other clotting factors; M54.16 Radiculopathy, lumbar region; F32.9 Major depressive disorder, single episode, unspecified; E89.0 Postprocedural hypothyroidism; X58.XXXA Exposure to other specified factors, initial encounter; S90.424A Blister (nonthermal), right lesser toe(s), initial encounter; E66.01 Morbid (severe) obesity due to excess calories; Z68.41 Body mass index [BMI] 40.0-44.9, adult; Z74.01 Bed confinement status; Z85.038 Personal history of other malignant neoplasm of large intestine; Z90.49 Acquired absence of other specified parts of digestive tract; Z85.3 Personal history of malignant neoplasm of breast; Z86.718 Personal history of other venous thrombosis and embolism; Z79.4 Long term (current) use of insulin; Z79.01 Long term (current) use of anticoagulants; Z93.3 Colostomy status; Z88.2 Allergy status to sulfonamides; Z91.041 Radiographic dye allergy status
CPT/HCPCS: 72148; 74176; 80048; 81003; 82948; 85025; 85027; 85610; 87040; 87077; 87086 GA; 87186; 94640; 99202; 99281; 99285; C1755; J0696; J1335; J1815; J1885; J2060; J2405; J7030; J7050; S0028